=== PATIENT | female | born 2000 | race Caucasian/White ===

== ENCOUNTER 2020-04-14 22:19 | Emergency (ER) | payer MEDICAID ==
[~2020-04-14] VITALS: Ht 167.6 cm; Wt 62.1 kg
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
--- NOTE | 2020-04-14 22:50 | NUR ---
LAB AT BEDSIDE
[2020-04-14 23:13] LABS: BASOPHILS # (AUTO) 0.1 /CMM (0.0-0.2); EOSINOPHILS % (AUTO) 3.6 % (0.0-6.0); HEMATOCRIT 43 % (33-45); HEMOGLOBIN 14.2 g/dL (11.5-14.8); LYMPHOCYTES # (AUTO) 2.3 /CMM (0.8-4.8); LYMPHOCYTES % (AUTO) 20.3 % (20.0-44.0); MEAN CORPUSCULAR HGB CONC 33 g/dl (31.0-36.0); MEAN CORPUSCULAR VOLUME 96 fL (82-100); MONOCYTES # (AUTO) 0.9 /CMM (0.1-1.30); MONOCYTES % (AUTO) 8.2 % (2.0-12.0); NEUTROPHILS # (AUTO) 7.6 /CMM (1.8-8.9); NEUTROPHILS % (AUTO) 66.9 % (43.0-81.0); PLATELET COUNT (AUTO) 407 /CMM (150-450); RED BLOOD CELL COUNT(AUTO) 4.47 MIL/uL (4.0-5.2); WHITE BLOOD COUNT (AUTO) 11.4 K/uL (4.3-11.0)
[2020-04-14 23:16] LABS: BILIRUBIN,URINE Negative (NEGATIVE); COLOR,URINE YELLOW (YELLOW); LEUKOCYTE ESTERASE ,URINE Negative (NEGATIVE); NITRITE, URINE Negative (NEGATIVE); PROTEIN,URINE Negative (NEGATIVE); UGLUCOSE Negative (NEGATIVE)
[2020-04-14 23:26] LABS: ALBUMIN 3.7 g/dL (3.4-5.0); BILIRUBIN,DIRECT 0.1 mg/dL (0.0-0.2); BILIRUBIN,TOTAL 0.2 mg/dL (0.2-1.0); CALCIUM, SERUM 8.6 mg/dL (8.5-10.1); CREATININE 0.9 mg/dL (0.6-1.3); POTASSIUM 3.8 mmol/L (3.5-5.1); TOTAL PROTEIN, SERUM 7.6 g/dL (6.4-8.2)
[2020-04-14 23:38] LABS: BACTERIA,URINE None seen /HPF (None Seen); RBC,URINE 81-100 /HPF (0-2); SQUAMOUS EPITHELIAL CELL,UR Few /HPF (None Seen); WBC,URINE 0-2 /HPF (0-3)
[2020-04-15] MEDS ORDERED: IBUPROFEN 600 MG TABLET ONE (00:26)
--- NOTE | 2020-04-15 00:29 | NUR ---
Patient discharged to home in stable condition. Written and verbal after care instructions given. Patient verbalizes understanding of instruction. ambulatory with a steady gait
[2020-04-15 00:30] VITALS: BP 124/65
[2020-04-15] MEDS ORDERED: IBUPROFEN 600 MG TABLET PO ONE (00:30)
== END 2020-04-15 00:31 | disposition home or self-care (01) ==
LOC: ER 22:23
DX: N83.202 Unspecified ovarian cyst, left side (principal); F17.200 Nicotine dependence, unspecified, uncomplicated
CPT/HCPCS: 36415; 80048-TC; 80076-TC; 81001; 83690-TC; 84703-TC; 85025-TC

== ENCOUNTER 2021-10-02 03:08 | Emergency (ER) | payer MEDICAID ==
[~2021-10-02] VITALS: Ht 170.2 cm; Wt 59.0 kg
[2021-10-02 03:13] VITALS: BP 126/81
[2021-10-02] MEDS ORDERED: HYDROCODONE/APAP 5/325MG TABLET ONE (03:20)
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
[2021-10-02] MEDS ORDERED: HYDROCODONE/APAP 5/325MG TABLET PO ONE (03:30)
--- NOTE | 2021-10-02 03:35 | NUR ---
PT TAKEN FOR CT SCAN
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
[2021-10-02] MEDS ORDERED: TDAP [DIPH/PERTUSSIS/TET] 0.5 ML VIAL IM ONE ×2 (03:50→04:00)
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
--- NOTE | 2021-10-02 13:36 | NUR ---
GABRIEL CALLED FOR RESULT,LEFT A MESSAGE TO CALL BACK,JER'S PHONE IS UNABLE TO RECEIVE MESSAGE
[2021-10-03] MEDS ORDERED: AMOX-430 PO (01:02)
[2021-10-03] MEDS ORDERED: HYDR-4275 PO (01:02)
== END 2021-10-02 13:38 | disposition home or self-care (01) ==
LOC: ER 03:13
DX: S02.2XXA Fracture of nasal bones, initial encounter for closed fracture (principal); F17.200 Nicotine dependence, unspecified, uncomplicated; Y04.2XXA Assault by strike against or bumped into by another person, initial encounter; Y93.89 Activity, other specified; Y92.89 Other specified places as the place of occurrence of the external cause; Y99.8 Other external cause status
CPT/HCPCS: 70450-TC; 70486-TC; 90715

== ENCOUNTER 2022-07-20 01:31 | Emergency (ER) | payer SELFPAY ==
[~2022-07-20] VITALS: Ht 170.2 cm; Wt 57.2 kg
[~2022-07-20 01:31] MED LIST: AMOX-430 PO; HYDR-4275 PO
--- NOTE | 2022-07-20 02:00 | NUR ---
8 WEEK BIBS FOR ON AND OFF VAGINAL BLEEDING AND CRAMP X 1 WEEK.
[2022-07-20 03:24] LABS: BILIRUBIN,URINE NEGATIVE (NEGATIVE); COLOR,URINE YELLOW (YELLOW); LEUKOCYTE ESTERASE ,URINE 1+ (NEGATIVE); NITRITE, URINE NEGATIVE (NEGATIVE); PH,URINE 6.5 (5.0-8.0); PROTEIN,URINE NEGATIVE (NEGATIVE); UGLUCOSE NEGATIVE (NEGATIVE); UROBILINOGEN,URINE 0.2 EU/dL (0.2)
[2022-07-20 03:37] LABS: BACTERIA,URINE Few /HPF (None Seen); SQUAMOUS EPITHELIAL CELL,UR Few /HPF (None Seen)
[2022-07-20] MEDS ORDERED: CEPH500C2 PO (03:49)
--- NOTE | 2022-07-20 04:11 | NUR ---
US TECH AT BED SIDE
[2022-07-20] MEDS ORDERED: ACETAMINOPHEN ES 500 MG TABLET PO ONE (05:30)
--- NOTE | 2022-07-20 06:22 | NUR ---
Patient discharged to home in stable condition. Rx and Written and verbal after care instructions given. Patient verbalizes understanding of instruction.
[2022-07-20 06:23] VITALS: BP 114/64
== END 2022-07-20 06:23 | disposition home or self-care (01) ==
LOC: ER 01:36
DX: O03.9 Complete or unspecified spontaneous abortion without complication (principal); O23.40 Unspecified infection of urinary tract in pregnancy, unspecified trimester; N39.0 Urinary tract infection, site not specified; F17.200 Nicotine dependence, unspecified, uncomplicated; Z3A.00 Weeks of gestation of pregnancy not specified
CPT/HCPCS: 36415; 76856-TC; 81001; 84702-TC; 84703-TC; 87086-TC

== ENCOUNTER 2022-10-25 09:06 | Emergency (ER) | payer MEDICAID ==
[~2022-10-25] VITALS: Ht 167.6 cm; Wt 59.0 kg
[2022-10-25 09:06] VITALS: BP 113/63; TEMP 98.1
[~2022-10-25 09:06] MED LIST changes: +CEPH500C2 PO
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
--- NOTE | 2022-10-25 09:16 | NUR ---
pt on bed comfortably, changed to gown, attached to monitors, not in cr distress. alert and oriented
--- NOTE | 2022-10-25 09:20 | NUR ---
REBECCA TRUJILLO AT BEDSIDE FOR EVAL
[2022-10-25] MEDS ORDERED: HYDR453.3 TP (09:27)
--- NOTE | 2022-10-25 09:44 | NUR ---
Patient discharged to home in stable condition. Written and verbal after care instructions given. Patient verbalizes understanding of instruction. DC BY
[2022-10-25 09:46] VITALS: O2SAT 100
== END 2022-10-25 09:47 | disposition home or self-care (01) ==
LOC: ER 09:11
DX: R21 Rash and other nonspecific skin eruption (principal)